=== PATIENT | female | born 1930 | race Caucasian/White ===

== ENCOUNTER 2017-07-11 17:48 | Emergency (ER) | payer OTHER ==
[~2017-07-11] VITALS: Ht 152.4 cm; Wt 61.0 kg
[~2017-07-11 17:48] MED LIST: ADVAIR HFA120 INHALA IH; ALPHAGAN P100 DROP/1 BOTH EYES; ALPHAGAN P100 DROP/5 BOTH EYES; AMLODIPINE BESYL5 MG PO; AROMASIN25 MG PO; AVAPRO75 MG PO; AZOR 10/20 M1 TABLET PO; BRIMONIDINE TART5 ML BOTH EYES; CALCIUM 500 +1 EAC4 PO; CALCIUM 500 +1 EACH PO; CARAFATE1 GM PO; CEFTIN500 MG PO; CELEXA10 MG PO; CIPRO500 MG PO; CITRATE OF MAG296 ML PO; CLARITIN,ALAVAR10 MG PO; CLARITIN10 M3 PO; CLARITIN10 MG PO; CONSTULOSE10 GM/15 M PO; Ceftin PO; DEPAKOTE250 MG PO; DICYCLOMINE HCL10 MG PO; EMBELINE15 GM TP; EXEMESTANE25 MG PO; FEMARA2.5 MG PO; FENOFIBRATE150 MG PO; GABAPENTIN100 MG PO; GEMFIBROZIL600 MG PO; GLUCO BURST37.5 GM PO; GLUCOTROL XL5 MG PO; HIPREX1 GM PO; IPRATR-ALBUTEROL3 ML IH; JANUVIA25 M1 PO; K-DUR10 MEQ PO; K-DUR20 MEQ PO; LANTUS 10100 UNITS/ SC; LANTUS 3 M100 UNITS1 SC; LETROZOLE2.5 MG PO; LOPID600 MG PO; LORATADINE10 M2 PO; LORCET 5-325 M1 EACH PO; LORTAB 5-325 M1 EACH PO; LOSARTAN POTASS25 MG PO; LOSARTAN POTASS50 MG PO; LOTRISONE15 GM TP; METHENAMINE HIPP1 G1 PO; METHENAMINE HIPP1 GM PO; METRONIDAZOLE500 MG PO; MEVACOR10 MG PO; MEVACOR40 MG PO; MILK OF MAGN PO; MIRALAX17 GM PO; MIRALAX255 GM PO; Maalox, Mylanta PO; NEURONTIN100 MG PO; NOVOLIN,HU100 UNITS1 SC; NOVOLOG 10100 UNITS/ SC; NOVOLOG PE100 UNITS/ SC; OMEPRAZOLE20 M2 PO; OMEPRAZOLE40 M1 PO; OS-CAL 500+D T1 EAC1 PO; PANTOPRAZOLE SO40 MG PO; PEPTO BISMOL240 ML PO; POLYETHYLENE GL17 GM PO; POTASSIUM CHLO10 ME4 PO; POTASSIUM CHLO20 ME2 PO; PRILOSEC40 MG PO; PROTONIX40 MG PO; Protonix PO; ROCEPHIN1 GM/50 ML IV; SENNA PLUS TAB1 EACH PO; TRAVATAN Z5 ML; TRAVATAN Z5 ML BOTH EYES; TYLENOL REGULA325 MG PO; Travatan 0.004% Opht BOTH EYES; VICODIN 5-3001 EACH PO; Vancocin Oral Solution PO; XANAX0.25 MG PO; ZANTAC150 MG PO
[2017-07-11 19:32] LABS: EOSINOPHIL COUNT 0.1 K/uL (0-0.3); HEMATOCRIT 43.9 % (36.0-46.0); IMMATURE GRANULOCYTE (%) 1.5 % (0.0-0.7); IMMATURE GRANULOCYTE COUNT 0.1 K/uL; INSTRUMENT ABS NEUTROPHIL CT 3.2 K/uL; LYMPHOCYTE COUNT 2.4 K/uL (1.0-2.8); MCH 31.6 PG (29.0-34.0); MCHC 34.4 G/DL (30.0-36.0); MCV 91.8 FL (83-99); MEAN PLAT.VOLUME 11.6 uM^3 (9.5-12.4); MONOCYTE COUNT 0.9 K/uL (0-0.8); NEUTROPHIL (%) 48.4 % (45-76); NEUTROPHIL COUNT 3.2 K/uL (1.8-6.4); NRBC (%) 0.4 /100 WBC (0-0); PLATELET COUNT 114 K/uL (156-360); RBC DIS.WIDTH-CV 17.7 % (11.8-14.6); RBC DIS.WIDTH-SD 58.4 % (39-53); RED BLOOD COUNT 4.78 M/uL (3.80-5.20); WHITE BLOOD COUNT 6.7 K/uL (4.1-10.2)
[2017-07-11 19:41] LABS: CHLORIDE 112 mEq/L (99-109); POTASSIUM 3.5 mEq/L (3.7-5.4); SODIUM 143 mEq/L (136-147)
[2017-07-11 19:43] LABS: GLUCOSE 126 mg/dL (70-99)
[2017-07-11 19:44] LABS: ANION GAP 8 MEQ/L (2-14)
[2017-07-11 19:47] LABS: GFR ESTIMATE (CALCULATED) > 59 mL/min/
[2017-07-11 19:48] LABS: UREA NITROGEN (BUN) 11 mg/dL (9-23)
[2017-07-11 19:49] LABS: CREATINE KINASE 53 IU/L (1-294); TOTAL CK 53 IU/L (1-294)
[2017-07-11 19:55] LABS: CK-MB 1.8 ng/mL (0.0-4.9)
[2017-07-11 20:03] LABS: ADD MIUA? YES; BILIRUBIN NEGATIVE; BLOOD SMALL; COLOR YELLOW ((YELLOW)); GLUCOSE (STRIP) NEGATIVE; KETONES NEGATIVE; LEUKOCYTES NEGATIVE; NITRITE NEGATIVE; PROTEIN (STRIP) 100; SPECIFIC GRAVITY 1.017 (1.000-1.030)
[2017-07-11 20:18] LABS: BACTERIA NONE SEEN /HPF; EPITHELIAL CELLS RARE /HPF; HYALINE CASTS 15-20 /LPF; MUCUS 3+ /LPF; WHITE BLOOD CELLS 0-5 /HPF (0-5)
[2017-07-11] MEDS ORDERED: ZOFRAN4 MG PO (21:52)
[2017-07-11 22:17] VITALS: BP 169/75
== END 2017-07-12 00:33 ==
LOC: EME 17:48
PROVIDERS: Emergency Medicine
DX: R11.10 Vomiting, unspecified (principal); W19.XXXA Unspecified fall, initial encounter; Y92.129 Unspecified place in nursing home as the place of occurrence of the external cause; F03.90 Unspecified dementia, unspecified severity, without behavioral disturbance, psychotic disturbance, mood disturbance, and anxiety; E11.9 Type 2 diabetes mellitus without complications; J44.9 Chronic obstructive pulmonary disease, unspecified; E78.5 Hyperlipidemia, unspecified; I10 Essential (primary) hypertension; K21.9 Gastro-esophageal reflux disease without esophagitis; G89.29 Other chronic pain; Z95.1 Presence of aortocoronary bypass graft; Z90.11 Acquired absence of right breast and nipple
CPT/HCPCS: 70450; 74022; 80048; 81003; 82550; 82553; 85025; 99281; 99285; J1630; J2060